=== PATIENT | female | born 1990 | race Caucasian/White ===

== ENCOUNTER 2017-11-17 00:55 | Emergency (ER) | payer OTHER, SELFPAY ==
[2017-11-17 01:08] VITALS: BP 123/53; PULSE 60; RESP 16; TEMP 36.7; O2SAT 99; BMI 25.2
--- NOTE | 2017-11-17 01:26 | ED_ITS ---
HPI - Abdominal Pain General Chief Complaint: Abdominal Pain Stated Complaint: Abdominal pain Time Seen by Provider: 11/17/17 01:01 Source: patient Mode of arrival: ambulatory Limitations: no limitations History of Present Illness HPI narrative: Otherwise healthy 27-year-old female here for evaluation approximately 3-4 days of worsening urinary frequency and pain at the end of urination and lower abdominal pain. Patient also states that she had vomiting earlier today. No fevers. No back pain. States she has not had any vaginal bleeding. Has not had a menstrual cycle in 5 weeks however she has skipped her placebo pills on her control. States she also had pain with intercourse in the past couple days. No prior history of urinary tract infections. Did have diarrhea prior to arrival as well. Related Data Previous Rx's Medication Instructions Recorded nitrofurantoin monohyd/m-cryst 1 cap PO Q12H 5 Days #10 cap 11/17/17 [Macrobid] phenazopyridine [Pyridium] 100 mg PO TID PRN 2 Days #6 tab 11/17/17 Allergies Allergy/AdvReac Type Severity Reaction Status Date / Time No Known Drug Allergies Allergy Verified 11/17/17 01:57 Review of Systems Constitutional Denies chills, Denies fever(s), Denies lethargy and Denies weakness Gastrointestinal Gastrointestinal: Reports abdominal pain, Denies constipation, Reports diarrhea , Reports nausea and Reports vomiting Genitourinary Reports hematuria, Reports urinary frequency, Denies difficulty voiding, Reports dysuria, Denies flank pain, Denies urinary hesitancy, Reports urinary urgency and Denies vaginal discharge Integumentary/Breasts Denies pruritus, Denies erythema, Denies rash and Denies wounds Neurologic Denies weakness Exam Initial Vital Signs Initial Vital Signs: Vital Signs Temperature 98.0 F 11/17/17 01:08 Pulse Rate 60 11/17/17 01:08 Respiratory Rate 16 11/17/17 01:08 Blood Pressure 123/53 H 11/17/17 01:08 Pulse Oximetry 99 11/17/17 01:08 Const General: cooperative and well developed Nutritional Appearance: well nourished Orientation: alert, awake, oriented x3 and not confused GI Inspection: non-distended Palpation: soft, no hepatosplenomegaly, No firm, No guarding, No pulsatile mass and No tender Auscultation: normal bowel sounds Back/Spine/Pelvis Back: No CVA tenderness Skin General: no rashes or lesions noted, No jaundice and No petechiae Neuro General: alert, awake, oriented x3, gait normal and no focal motor deficits Speech: speech normal Gait: normal gait Course Orders Ordered: ED Orders 11/17/17 01:11 Urine Culture Stat Urine Microscopic Stat Discontinued Medications Ibuprofen (Advil) 800 mg PO NOW ONE Stop: 11/17/17 01:49 Last Admin: 11/17/17 01:55 Dose: 800 mg Nitrofurantoin Macrocrystals (Macrobid 100 Mg Capsule) 100 mg PO NOW ONE Stop: 11/17/17 01:53 Last Admin: 11/17/17 01:55 Dose: 100 mg Ondansetron HCl (Zofran Odt Prepack) 1 bottle MISC SEEINSTR ONE Stop: 11/17/17 01:53 Last Admin: 11/17/17 01:55 Dose: 1 bottle Vital Signs - 8 hr 11/17/17 01:08 Temperature 98.0 F Pulse Rate 60 Respiratory Rate 16 Blood Pressure 123/53 H Pulse Oximetry 99 MDM - Abdominal Pain Lab Data Attestation: I reviewed the patient's lab results. Lab Results 11/17/17 Range/Units 01:11 Urine RBC 1-5/hpf (0-5/HPF) Urine WBC 10-30/hpf H (0-5/HPF) Ur Squamous Epith Cells 1-5 /hpf Urine Bacteria Moderate (10-30) H (None) Ur Culture Indicated? Specimen cultured Micro UA Comment Not Reportable MDM Narrative Medical decision making narrative: test negative. Urinalysis consistent with urinary tract infection especially in the setting of her symptoms. Patient was given 1st dose of antibiotics here in the emergency department and tolerated them without problems. Will send home with prescription for antibiotics and a prepack for anti nausea medication. She was also given peridium for the symptoms. She was given return precautions. She expressed understanding and agreement with plan. Discharge Plan Departure Patient Disposition: Home, Self-Care Clinical Impression: Urinary tract infection Instructions: DI for Urinary Tract Infection (UTI) Activity Restrictions/Additional Instructions: Take all of the medications as instructed. Increase your fluid intake. Return to the emergency department for any worsening pain, inability to tolerate the antibiotics, fevers, or any other concerning symptoms Prescriptions: New nitrofurantoin monohyd/m-cryst [Macrobid] 100 mg capsule 1 cap PO Q12H 5 Days Qty: 10 RF: 0 phenazopyridine [Pyridium] 100 mg tablet 100 mg PO TID PRN (Reason: Pain, Mild) 2 Days Qty: 6 RF: 0
[2017-11-17 01:49] LABS: Bacteria Urine Moderate (10-30); Culture Indicated Urine Specimen Cultured; RBC Urine 1-5/HPF (0-5/HPF); Squamous Epithelial Cell Urine 1-5 /HPF; WBC Urine 10-30/HPF (0-5/HPF)
[2017-11-17] MEDS: ONDANSETRON 4 MG ODT PREPACK 1 BOTTLE MISC (01:55)
[2017-11-17] MEDS: NITROFURANTOIN ER 100 MG CAPSULE PO (01:55)
[2017-11-17] MEDS: IBUPROFEN 400 MG TABLET 800 MG PO (01:55)
--- NOTE | 2017-11-17 02:05 | PC.NURSE ---
Pt requests that if further follow up contact is needed for urine culture to email pt as her phone does not work at home. Registration updated email upon d/c.
[2017-11-17 02:06] VITALS: BP 120/55; PULSE 60; RESP 16; TEMP 36.8; O2SAT 98
== END 2017-11-17 02:07 | disposition home or self-care (01) ==
PROVIDERS: Emergency Provider Emergency Medicine
DX: N39.0 Urinary tract infection, site not specified (principal)
CPT/HCPCS: 81003; 81015; 81025; 87077; 87086; 87186; 99283